=== PATIENT | female | born 1990 | race American Indian/Alaskan Native ===

== ENCOUNTER 2018-10-28 12:54 | Emergency (ER) | payer OTHER ==
[2018-10-28 13:11] VITALS: BP 110/67
--- NOTE | 2018-10-28 13:13 | Emergency Department Report ---
Blank Doc - Documentation Documentation: 28 y/o female with 5 days history of chest pain. Denies any N/V no sob. no ra diation. No PMH anemia.
[2018-10-28] MEDS ORDERED: LIDOCAINE VISCOUS 2% PO ONE (13:30)
[2018-10-28] MEDS ORDERED: ALUM-MAG HYDROX-SIMETH 200-200-20MG/5ML PO ONE (13:30)
--- NOTE | 2018-10-28 13:36 | Emergency Department Report ---
HPI - General Chief Complaint: Chest Pain Time Seen by Provider: 10/28/18 13:22 - HPI HPI: Room 3 The patient is a 20-year-old female presenting with chief complaint of chest pain. The patient states she's had intermittent chest tightness for the past 5 days. Patient denies shortness of breath, nausea vomiting or diaphoresis. Patient denies pleurisy cough or fever. The patient currently gives her pain is scored 3.5/10. Patient denies previous episodes of same. Location: Chest Duration: Intermittent 5 days Quality: Tightness Severity: 3.5/10 Modifying factors: [see above] Context: [see above] Mode of transportation: The patient drove herself to the ED and there are no visitors present ED Past Medical Hx - Past Medical History Previous Medical History?: No - Surgical History Past Surgical History?: No - Family History Family history: no significant - Social History Smoking Status: Never Smoker Substance Use Type: None (denies illicit drug use), Alcohol (rarely) - Medications Home Medications: Home Medications Medication Instructions Recorded Confirmed Last Taken Type Famotidine [Pepcid] 20 mg PO BID #20 tablet 10/28/18 Unknown Rx HYDROcodone/APAP 5-325 [[place] 1 each PO Q6HR PRN #7 tablet 10/28/18 Unknown Rx 5/325] Ibuprofen [Motrin 800 MG tab] 800 mg PO Q8HR PRN #20 tablet 10/28/18 Unknown Rx ED Review of Systems ROS: Stated complaint: CHEST PAIN/TIGHTNESS Other details as noted in HPI Constitutional: denies: diaphoresis Eyes: denies: eye pain ENT: denies: throat pain Respiratory: denies: shortness of breath Cardiovascular: chest pain Endocrine: no symptoms reported Gastrointestinal: denies: nausea, vomiting Genitourinary: denies: dysuria Musculoskeletal: denies: back pain Neurological: denies: headache Physical Exam - Physical Exam Vital Signs: Vital Signs 10/28/18 13:09 Temperature 98.7 F Pulse Rate 67 Respiratory 16 Rate Blood Pressure 110/67 [Left] O2 Sat by Pulse 100 Oximetry Physical Exam: GENERAL: The patient is well-developed well-nourished female lying on stretcher not appearing to be in acute distress. [] HEENT: Normocephalic. Atraumatic. Extraocular motions are intact. Patient has moist mucous membranes. NECK: Supple. Trachea midline CHEST/LUNGS: Clear to auscultation. There is no respiratory distress noted. HEART/CARDIOVASCULAR: Regular. There is no tachycardia. There is no gallop rub or murmur. ABDOMEN: Abdomen is soft, nontender. Patient has normal bowel sounds. There is no abdominal distention. SKIN: There is no rash. There is no edema. There is no diaphoresis. NEURO: The patient is awake, alert, and oriented. The patient is cooperative. The patient has normal speech MUSCULOSKELETAL: There is no evidence of acute injury. ED Course Vital Signs 10/28/18 13:09 Temperature 98.7 F Pulse Rate 67 Respiratory 16 Rate Blood Pressure 110/67 [Left] O2 Sat by Pulse 100 Oximetry - Reevaluation(s) Reevaluation #1: 10/28/18 14:20 Patient states she is currently asymptomatic ED Medical Decision Making - Lab Data Result diagrams: 10/28/18 13:33 10/28/18 13:33 Laboratory Tests 10/28/18 10/28/18 10/28/18 13:33 13:33 13:33 WBC 3.0 L RBC 3.77 Hgb 11.4 Hct 34.6 MCV 92 MCH 30 MCHC 33 RDW 13.4 Plt Count 154 Lymph % (Auto) Bonding Machine Tender Seg Neutrophils % Bonding Machine Tender D-Dimer < 135.00 Sodium 136 L Potassium 3.7 Chloride 102.0 Carbon Dioxide 24 Anion Gap 14 BUN 8 Creatinine 0.6 L Estimated GFR > 60 BUN/Creatinine Ratio 13 Glucose 99 Calcium 8.7 Total Creatine Kinase 98 CK-MB (CK-2) 1.1 CK-MB (CK-2) Rel Index 1.1 Troponin T < 0.010 NT-Pro-B Natriuret Pep 17.56 HCG, Qual 10/28/18 13:33 WBC RBC Hgb Hct MCV MCH MCHC RDW Plt Count Lymph % (Auto) Seg Neutrophils % D-Dimer Sodium Potassium Chloride Carbon Dioxide Anion Gap BUN Creatinine Estimated GFR BUN/Creatinine Ratio Glucose Calcium Total Creatine Kinase CK-MB (CK-2) CK-MB (CK-2) Rel Index Troponin T NT-Pro-B Natriuret Pep HCG, Qual Negative - EKG Data -: EKG Interpreted by Oh EKG shows normal: sinus rhythm Rate: bradycardia (58 bpm) - EKG Data When compared to previous EKG there are: previous EKG unavailable Interpretation: nonspecific ST-T wave priyank (T-wave inversion in lead 3) - Radiology Data Radiology results: report reviewed (chest x-ray), image reviewed (chest x-ray) interpreted by me: Chest x-ray-no focal infiltrate, no pneumothorax [facility] [address] [place] [address] XRay Report Signed Patient: KAYE HAGEN MR#: [id number] : 1990 Acct:[id number] Age/Sex: 28 / F ADM Date: 10/28/18 Loc: ED Attending Dr: Ordering Physician: LAVONNE SCHWARZ Date of Service: 10/28/18 Procedure(s): XR chest routine 2V Accession Number(s): [id number] cc: LAVONNE SCHWARZ Fluoro Time In Minutes: Chest 2 views: History: Chest pain. Findings: Normal cardiomediastinal silhouette. Trachea is midline. No consolidation, pneumothorax or pleural effusion. Impression: No acute cardiopulmonary findings. Transcribed By: PTP Dictated By: JACOB MOSQUEDA MD Electronically Authenticated By: JACOB MOSQUEDA MD Signed Date/Time: 10/28/18 133 DD/ 133 TD/TT: 10/28/181335 - Differential Diagnosis GERD, pleurisy, costochondritis, PE, ACS Critical care attestation.: If time is entered above; I have spent that time in minutes in the direct care of this critically ill patient, excluding procedure time. ED Disposition Clinical Impression: Atypical chest pain Disposition: DC-01 TO HOME OR SELFCARE Is pt being admited?: No Does the pt Need Aspirin: No Condition: Stable Instructions: Chest Pain (ED), Costochondritis (ED) Additional Instructions: Return to the emergency department immediately should you develop worsening symptoms, fever, inability to tolerate food or liquid or any other concerns. Prescriptions: Ibuprofen [Motrin 800 MG tab] 800 mg PO Q8HR PRN #20 tablet PRN Reason: Pain, Moderate (4-6) HYDROcodone/APAP 5-325 [[place] 5/325] 1 each PO Q6HR PRN #7 tablet PRN Reason: Pain Famotidine [Pepcid] 20 mg PO BID #20 tablet Referrals: [facility] [Outside] - 3-5 Days VONNIE HALLMAN DO [Staff Physician] - 3-5 Days Time of Disposition: 14:22
[2018-10-28 13:52] LABS: Hematocrit 34.6 % (30.3-42.9); Hemoglobin 11.4 gm/dl (10.1-14.3); Mean Corpuscular HGB Conc 33 % (30-34); Mean Corpuscular Volume 92 fl (79-97); Platelet Count 154 K/mm3 (140-440); Red Blood Count 3.77 M/mm3 (3.65-5.03); Red Cell Distribution Width 13.4 % (13.2-15.2)
--- NOTE | 2018-10-28 13:57 | XRay Report ---
Chest 2 views: History: Chest pain. Findings: Normal cardiomediastinal silhouette. Trachea is midline. No consolidation, pneumothorax or pleural effusion. Impression: No acute cardiopulmonary findings.
[2018-10-28 14:14] LABS: Creatine Kinase MB 1.1 ng/mL (0.0-4.0)
[2018-10-28 14:16] LABS: BUN/Creatinine Ratio 13; Blood Urea Nitrogen 8 mg/dL (7-17); Calcium 8.7 mg/dL (8.4-10.2); Hemolysis Index 5
[2018-10-28 15:03] LABS: Basophils % (Manual) 0 % (0.0-1.8); Total Cells Counted 100
[2018-10-28 15:04] LABS: Platelet Estimate Consistent w Auto; RBC Morphology Normal
== END 2018-10-28 15:20 | disposition home or self-care (01) ==
LOC: ED 12:54
DX: R07.89 Other chest pain (principal)
CPT/HCPCS: 36415; 71046; 80048; 82550; 82553; 83880; 84484; 84703; 85007; 85025; 85379; 93005; 93010